=== PATIENT | female | born 1960 | race Caucasian/White ===

== ENCOUNTER → 2017-02-19 | Outpatient (CLI) | payer OTHER ==
[~2017-02-19] MED LIST: BLACK COHOSH PO; CALCIUM CITRATE PO; DICYCLOMINE HCL20 MG PO; ESTER C PO; EVENING PRIMROSE PO; FLAX SEED OIL PO; FLONASE16 GM; MAG-OXIDE400 MG PO; VIT E PO; XYZAL PO; [UNRECOGNIZED DRUG - OTHER] PO; [UNRECOGNIZED DRUG - OTHER] PO
--- NOTE | ~2017-02-19 | MY29 ---
[facility] A Service of [facility] RADIOLOGY TEXT RESULTS PATIENT: CAPRI LICONA LOCATION: [facility] : 58 UNIT #: [id number] AGE: [address]: Lito Mann MD SEX: F ORDER DR: [id number] [facility] [address] [place], [place] [address] [id number] O MR#: [id number] Acc #: [id number] NAME: CAPRI LICONA. : 1960 SEX: F STUDY DATE/TIME: 02/19/2017 10:54 UNIT: [facility] ROOM: STUDY DESCRIPTION: MY SHAHNAZ SCREENING W/ CAD BILAT Attending Physician: Lito Mann M.D. Ordering Physician: Lito Mann M.D. Primary Care Physician: Anthony Villagran M.D. MEDICAL IMAGING REPORT This report is preliminary unless electronic signature is present EXAM Digital screening mammogram 02/19/2017, [facility] HISTORY 56-year-old woman positive family history, sister. Annual screen. COMPARISON Mammograms date to 10/23/2005 with most recent 02/16/2016. FINDINGS Digital imaging of each breast was completed utilizing screening protocol. Review includes FDA-approved CAD device. Breast parenchyma is heterogeneously dense with a dominant pattern again noted in the inner hemisphere of the right breast. There is no interval occurring mass. I see no suspicious microcalcifications and no focal architectural distortion. IMPRESSION Benign mammogram. Annual screening recommended. Patient's over the age of 40 are entered into a reminder system with target due date for the next mammogram. A result letter will be sent to the patient. BIRADS: 2 Benign findings. Dictated by... Oliver Zamora M.D. THIS IS AN ELECTRONICALLY VERIFIED REPORT Oliver Zamora M.D. at 02/20/2017 8:11 AM JBB/to [facility] A Service of [facility] RADIOLOGY TEXT RESULTS PATIENT: CAPRI LICONA LOCATION: [facility] : 58 UNIT #: [id number] AGE: [address]: Lito Mann MD SEX: F ORDER DR: TD: 02/19/2017 17:02 JOB #: [id number] MEDICAL IMAGING REPORT Page 1 of 1 COPY
== END | disposition home or self-care (01) ==
LOC: CWCC 10:24
DX: Z12.31 Encounter for screening mammogram for malignant neoplasm of breast (principal); Z80.3 Family history of malignant neoplasm of breast
CPT/HCPCS: G0202